=== PATIENT | male | born 1940 | race Caucasian/White ===

== ENCOUNTER 2020-03-10 10:50 | Outpatient (CLI) | payer MEDICARE, OTHER, SELFPAY ==
--- NOTE | 2020-03-10 14:33 | PFTS_ITS ---
Date of Study:03/10/20 Date of Dictation: MECHANICS: Forced vital capacity (FVC) is reduced. Forced expiratory volume in one second (FEV1) is reduced. FEV1/FVC is reduced. FLOW VOLUME LOOP: Reduced flow at all lung volumes with significant scooping. LUNG VOLUMES: Total lung capacity (TLC) is normal. Residual volume (RV) is increased. DIFFUSING CAPACITY FOR CARBON MONOXIDE: Normal INTERPRETATION: The pulmonary function tests are consistent with moderate obstruction. There is no significant postbronchodilator response. Lung volumes are consistent with air trapping. Gas exchange (DLCO) is normal. MTDD
== END 2020-03-10 10:51 | disposition home or self-care (01) ==
LOC: RT 10:51
PROVIDERS: PCP Internal Medicine; Visit Provider Family Medicine
DX: R06.02 Shortness of breath (principal)
CPT/HCPCS: 94060; 94726; 94729; J7611

== ENCOUNTER → 2021-02-23 13:55 | Outpatient (BNVA) | payer MEDICARE, OTHER, SELFPAY | PROVIDERS: PCP Family Medicine; Referring Provider Family Medicine; Visit Provider Urology | DX: N13.5 Crossing vessel and stricture of ureter without hydronephrosis (principal); N13.30 Unspecified hydronephrosis | CPT/HCPCS: 81003 ==

== ENCOUNTER 2021-03-29 07:52 | Outpatient (CLI) | payer MEDICARE, OTHER, SELFPAY ==
--- NOTE | 2021-03-29 | NM_ITS ---
WS: [id number] NUCLEAR MEDICINE RENAL FLOW STUDY INDICATION: Renal insufficiency. Hydronephrosis. Right flank pain. TECHNIQUE: Nuclear medicine renal scintigraphy with diuretic 20 mg Lasix FINDINGS: Asymmetric decreased uptake and perfusion right kidney on the initial imaging at 35.3%. Est imated GFR 24.3. Increased time to peak right kidney. Overall decreased perfusion right kidney. Poor emptying right kidney post-Lasix with diuretic T1 half 119 minutes Normal perfusion left kidney 64.6% with GFR 54.2. Normal time to peak with normal excretion post-Lasi x. NM/NM renal flow w pharm [id number] IMPRESSION: 1. Decreased uptake and perfusion right kidney with increased time to peak and poor emptying post Lasix. Estimated GFR 24.3 2. Normal renal perfusion and excretion left kidney.
== END 2021-03-29 07:53 | disposition home or self-care (01) ==
PROVIDERS: PCP Family Medicine; Visit Provider Urology
DX: N13.5 Crossing vessel and stricture of ureter without hydronephrosis (principal)
CPT/HCPCS: 78708; 81003; A9539; J1940

== ENCOUNTER 2022-02-17 13:53 | Outpatient (CLI) | payer MEDICARE, OTHER, SELFPAY ==
--- NOTE | 2022-02-17 14:06 | XRR_ITS ---
PROCEDURE INFORMATION: Exam: XR Ribs Exam date and time: 02/17/2022 2:08 PM Age: 82 years old Clinical indication: Pain and injury or trauma; Fall; Rib area, bilateral; Blunt trauma; Chest wall pain; Prior surgery; Surgery type: --open heart, pace maker; Additional info: R sided rib pain TECHNIQUE: Imaging protocol: XR of the ribs. Views: 3 views. Bilateral ribs. COMPARISON: CR XR chest 2V* [id number] 02/24/2020 12:08 PM FINDINGS: Bones/joints: There is no evidence for acute fracture or malalignment. Soft tissues: Normal. The lungs are clear. No pleural effusion or pneumothorax. There is a dual lead pacemaker. XR/XR ribs BI 3V* [id number] IMPRESSION: No acute findings.
== END 2022-02-17 13:54 | disposition home or self-care (01) ==
LOC: RAD 13:56
PROVIDERS: PCP Family Medicine; Visit Provider Family Medicine
DX: R07.81 Pleurodynia (principal)
CPT/HCPCS: 71110; 80053; 83690; 85025; 86140

== ENCOUNTER 2022-02-18 06:31 | Outpatient (CLI) | payer MEDICARE, OTHER, SELFPAY ==
--- NOTE | 2022-02-18 | US_ITS ---
WS: [id number] ULTRASOUND ABDOMEN LIMITED CLINICAL INFORMATION: RUQ PAIN COMPARISON: None. FINDINGS: Liver Size: Normal. Craniocaudal length: 15.0 cm. Echogenicity: Normal. Surface nodularity: None. Mass (size and location): None. Bile ducts Intrahepatic ducts: Normal. Common bile duct diameter: 0.3 cm. Gallbladder Normal. Gallstones: None. Gallbladder sludge: None. Gallbladder wall thickening: None. Pericholecystic fluid: None. Sonographic Tripp sign: Absent. Pancreas Normal as visualized. Right kidney: Multiple RIGHT renal cysts. Hydronephrosis: Moderate Size: 10.5 cm x 5.3 cm x 4.7 cm. Abdominal aorta and IVC Visualized portions are normal. Ascites: None. US/US abdomen limited [id number] IMPRESSION: 1. Moderate RIGHT hydronephrosis with multiple RIGHT renal cysts and peripelvi c cysts with dilatation RIGHT proximal ureter. Findings similar to the prior CT February 08, 2021. 2. Normal gallbladder. Normal common bile duct.
== END 2022-02-18 06:32 | disposition home or self-care (01) ==
LOC: RAD 06:32
PROVIDERS: PCP Family Medicine; Visit Provider Family Medicine
DX: N13.30 Unspecified hydronephrosis (principal); N28.1 Cyst of kidney, acquired
CPT/HCPCS: 76705

== ENCOUNTER 2022-03-17 10:19 | Outpatient (CLI) | payer MEDICARE, OTHER, SELFPAY ==
--- NOTE | 2022-03-17 10:30 | CT_ITS ---
WS: [id number] CT ABDOMEN PELVIS TECHNIQUE: Noncontrast CT of the abdomen and contrast-enhanced CT of the abdomen and pelvis with sergei nal and sagittal reformatted images. CLINICAL INFORMATION: UPJ COMPARISON: CT February 08, 2021 and ultrasound February 18, 2022 DLP: 2952.[address] scans at [facility] use at least one of these dose optimization techniques: automated e xposure control; mA and/or kV adjustment per patient size (includes targeted exams where dose is matc hed to clinical indication); or iterative reconstruction. FINDINGS: RIGHT renal cortical atrophy. Moderate RIGHT hydronephrosis with dilatation of the collecting system has improved compared to February 08, 2021 but is persistent. Suggestion of RIGHT UPJ stricture with obstr uction. Ureter distal to this is decompressed. No ureterectasis distal to the UPJ. Normal LEFT ureter. Normal LEFT ureteral excretion. Delayed emptying RIGHT kidney. Bilateral peripelv ic and renal cysts. Largest cyst RIGHT kidney measures 4.9 x 5.2 cm and LEFT kidney measures 4.4 x 3. 8 cm. Heterogeneous prostate enhancement measuring 2.9 x 4.4 cm with evidence of bladder outlet obstruction . Diffuse bladder wall thickening. Small cystocele. Mild thickening of the seminal vesicles bilateral ly. Lung bases are well aerated. Mild diffuse fatty infiltration of the liver. Normal portal vein and spl enic vein. Mild fatty atrophy of the pancreas. Normal spleen. Normal GE junction. Normal caliber abdo samuel aorta. Moderate aortic calcification. Adrenal glands are normal. Rectosigmoid constipation. Rectal distention. Moderate sigmoid constipation. Fat-containing umbilical hernia. Incidental fat-containing inguinal hernia. CT/CT abdomen pelvis wo/w [id number] IMPRESSION: 1. Moderate RIGHT hydronephrosis with suggestion of RIGHT UPJ obstruction with urothelial enhancement. 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 Ureter distal to this is deco mpressed. 2. Delayed emptying RIGHT kidney. Normal LEFT ureteral excretion. 3. RIGHT renal cortical atrophy. Normal renal parenchymal enhancement bilatera lly. 4. Rectosigmoid and moderate sigmoid constipation. 5. Heterogeneous enhancing prominent prostate with evidence of bladder outlet obstruction. Mild thickening of the seminal vesicles bilaterally. 6. Stable bilateral peripelvic and renal cortical cysts.
[2022-03-17] MEDS: iodixanol 320 mg/mL 100mL Btl IV (11:24)
== END 2022-03-17 10:20 | disposition home or self-care (01) ==
LOC: RAD 10:20
PROVIDERS: PCP Family Medicine; Visit Provider Urology
DX: N13.5 Crossing vessel and stricture of ureter without hydronephrosis (principal); N13.30 Unspecified hydronephrosis; R10.9 Unspecified abdominal pain
CPT/HCPCS: 74178; 81003; 99213

== ENCOUNTER → 2022-05-03 07:57 | Outpatient (BNVA) | payer MEDICARE, OTHER, SELFPAY | PROVIDERS: PCP Family Medicine; Visit Provider Family Medicine | DX: I50.22 Chronic systolic (congestive) heart failure (principal); I25.729 Atherosclerosis of autologous artery coronary artery bypass graft(s) with unspecified angina pectoris | CPT/HCPCS: 80048; 85025 ==

== ENCOUNTER → 2022-05-27 07:39 | Outpatient (BNVA) | payer MEDICARE, OTHER, SELFPAY | PROVIDERS: PCP Family Medicine; Visit Provider Family Medicine | DX: I50.22 Chronic systolic (congestive) heart failure (principal) | CPT/HCPCS: 80048 ==

== ENCOUNTER → 2022-07-19 08:03 | Outpatient (BNVA) | payer MEDICARE, OTHER, SELFPAY | PROVIDERS: PCP Family Medicine; Visit Provider Family Medicine | DX: I50.22 Chronic systolic (congestive) heart failure (principal) | CPT/HCPCS: 80048 ==

== ENCOUNTER → 2022-08-30 10:31 | Outpatient (BNVA) | payer MEDICARE, OTHER, SELFPAY | PROVIDERS: PCP Family Medicine; Visit Provider Family Medicine | DX: I50.22 Chronic systolic (congestive) heart failure (principal) | CPT/HCPCS: 80048 ==

== ENCOUNTER 2022-09-14 11:23 | Outpatient (CLI) | payer MEDICARE, OTHER, SELFPAY ==
--- NOTE | 2022-09-14 11:31 | XR_ITS ---
WS: [id number] Chest 2 views, 09/14/2022 Clinical Data: cough and shortness of breath Comparison: PA chest, 02/17/2022 Findings: No nodules, masses or effusions are seen. The heart is normal. The pulmonary vascularity is not increased. No pneumonia or pneumothorax is seen. The aortic arch and descending thoracic aorta s how calcification and mild tortuosity. There are coronary artery stents. The 2-lead pacemaker remains in the same position. Midline sternotomy sutures are present. XR/XR chest 2V* [id number] Impression: Atherosclerosis and cardiac pacemaker.
== END 2022-09-14 11:24 | disposition home or self-care (01) ==
LOC: RAD 11:27
PROVIDERS: PCP Family Medicine; Visit Provider Clinical Nurse Specialist Adult Health
DX: J40 Bronchitis, not specified as acute or chronic (principal)
CPT/HCPCS: 71046

== ENCOUNTER → 2022-09-21 14:17 | Outpatient (BNVA) | payer MEDICARE, OTHER, SELFPAY | PROVIDERS: PCP Family Medicine; Visit Provider Family Medicine | DX: M79.10 Myalgia, unspecified site (principal); R53.81 Other malaise; R53.83 Other fatigue; E53.8 Deficiency of other specified B group vitamins; E55.9 Vitamin D deficiency, unspecified; M25.50 Pain in unspecified joint; R05.3 Chronic cough; R35.0 Frequency of micturition; Z51.81 Encounter for therapeutic drug level monitoring; I25.10 Atherosclerotic heart disease of native coronary artery without angina pectoris; Z01.810 Encounter for preprocedural cardiovascular examination | CPT/HCPCS: 80053; 82306; 82550; 82607; 84153; 85025; 86038; 86141; 86431; 87070; 87205 ==

== ENCOUNTER → 2022-09-23 13:17 | Outpatient (BNVA) | payer MEDICARE, OTHER, SELFPAY | PROVIDERS: PCP Family Medicine; Visit Provider Family Medicine | DX: R05.3 Chronic cough (principal) | CPT/HCPCS: 87070; 87205 ==

== ENCOUNTER → 2022-09-29 09:29 | Outpatient (BNVA) | payer MEDICARE, OTHER, SELFPAY | PROVIDERS: PCP Family Medicine; Visit Provider Internal Medicine Pulmonary Disease | DX: R06.09 Other forms of dyspnea (principal); R05.3 Chronic cough; J44.9 Chronic obstructive pulmonary disease, unspecified; Z87.891 Personal history of nicotine dependence | CPT/HCPCS: 36415; 82785; 85025; 86003; 99204 ==

== ENCOUNTER → 2022-10-07 07:55 | Outpatient (BNVA) | payer MEDICARE, OTHER, SELFPAY | PROVIDERS: PCP Family Medicine; Visit Provider Family Medicine | DX: I25.709 Atherosclerosis of coronary artery bypass graft(s), unspecified, with unspecified angina pectoris (principal); I25.701 Atherosclerosis of coronary artery bypass graft(s), unspecified, with angina pectoris with documented spasm | CPT/HCPCS: 80053; 80061; 85025 ==

== ENCOUNTER 2022-10-27 07:54 | Outpatient (CLI) | payer MEDICARE, OTHER, SELFPAY ==
--- NOTE | 2022-10-27 08:00 | CT_ITS ---
WS: [id number] CT CHEST TECHNIQUE: Noncontrast CT of the chest with coronal and sagittal reformatted images. CLINICAL INFORMATION: chronic cough/lung screening COMPARISON: None. DLP: 382.[address] scans at [facility] use at least one of these dose optimization techniques: automated e xposure control; mA and/or kV adjustment per patient size (includes targeted exams where dose is matc hed to clinical indication); or iterative reconstruction. FINDINGS: Hazy nodular pulmonary opacity LEFT lower lobe measuring 9mm with a small amount of surrounding satel lite micronodularity. Moderate chronic emphysematous changes. No focal pneumonia or pleural fluid. Sternotomy with aortic calcification. CABG. Coronary calcification. No mediastinal or hilar lymphaden opathy. No axillary lymphadenopathy. Normal GE junction. Adrenal glands are normal. Atrophic RIGHT k idney. LEFT renal cyst measuring 2.9 CM. Splenic artery calcification. Cardiac pacer. CT/CT chest wo con [id number] IMPRESSION: 1. Hazy groundglass opacity LEFT lower lobe with surrounding micronodularity p rogressed compared to March 17, 2022. Associated opacity measures 9 mm. This may be infectious or inflammatory but indeterminant. Recommend 3 month follow-up c hest CT. 2. No other suspicious findings.
== END 2022-10-27 07:55 | disposition home or self-care (01) ==
LOC: RAD 07:54
PROVIDERS: PCP Family Medicine; Visit Provider Internal Medicine Pulmonary Disease
DX: Z12.2 Encounter for screening for malignant neoplasm of respiratory organs (principal); R05.3 Chronic cough; R91.8 Other nonspecific abnormal finding of lung field
CPT/HCPCS: 71250

== ENCOUNTER 2022-11-03 07:04 | Outpatient (CLI) | payer MEDICARE, OTHER, SELFPAY | END 2022-11-03 07:05 | disposition home or self-care (01) | LOC: RT 07:07 | PROVIDERS: PCP Family Medicine; Visit Provider Internal Medicine Pulmonary Disease | DX: R05.3 Chronic cough (principal); J18.9 Pneumonia, unspecified organism; R06.02 Shortness of breath | CPT/HCPCS: 94060; 94618; 94726; 94729; J7613 ==

== ENCOUNTER 2022-11-22 06:13 | Outpatient (CLI) | payer MEDICARE, OTHER, SELFPAY ==
--- NOTE | 2022-11-22 06:30 | CT_ITS ---
WS: [id number] CT CHEST TECHNIQUE: Noncontrast CT of the chest with coronal and sagittal reformatted images. CLINICAL INFORMATION: f/u 9 mm Hazy groundglass opacity COMPARISON: CT October 27, 2022 DLP: 366.[address] scans at [facility] use at least one of these dose optimization techniques: automated e xposure control; mA and/or kV adjustment per patient size (includes targeted exams where dose is matc hed to clinical indication); or iterative reconstruction. FINDINGS: Previously described hazy nodular pulmonary opacity LEFT lower lobe previously measuring 9mm with a s mall amount of surrounding satellite micronodularity has improved. Hazy groundglass opacity has resol valeri with a small amount of residual micronodularity. No new infiltrates or opacities. No other signif icant changes compared to previous Moderate chronic emphysematous changes. Sternotomy with aortic calcification. CABG. Coronary calcific ation. No mediastinal or hilar lymphadenopathy. No axillary lymphadenopathy. Normal GE junction. Adrenal glands are normal. Atrophic RIGHT kidney. LE FT renal cyst measuring 2.9 CM. Splenic artery calcification. Cardiac pacer. CT/CT chest wo con [id number] IMPRESSION: 1. Previously described hazy groundglass opacity LEFT lower lobe has essential ly resolved. Small amount of residual micronodularity. No new opacities. 2. No other significant changes compared to previous.
== END 2022-11-22 06:14 | disposition home or self-care (01) ==
LOC: RAD 06:14
PROVIDERS: PCP Family Medicine; Visit Provider Internal Medicine Pulmonary Disease
DX: R91.8 Other nonspecific abnormal finding of lung field (principal)
CPT/HCPCS: 71250

== ENCOUNTER → 2022-12-01 11:33 | Outpatient (BNVA) | payer MEDICARE, OTHER, SELFPAY | PROVIDERS: PCP Family Medicine; Visit Provider Internal Medicine Pulmonary Disease | DX: J45.909 Unspecified asthma, uncomplicated (principal); R05.3 Chronic cough; Z91.09 Other allergy status, other than to drugs and biological substances; Z87.891 Personal history of nicotine dependence | CPT/HCPCS: 99214 ==

== ENCOUNTER → 2023-01-05 08:11 | Outpatient (BNVA) | payer MEDICARE, OTHER, SELFPAY | PROVIDERS: PCP Family Medicine; Visit Provider Family Medicine | DX: I50.22 Chronic systolic (congestive) heart failure (principal) | CPT/HCPCS: 80048 ==

== ENCOUNTER 2023-05-11 10:34 | Outpatient (CLI) | payer MEDICARE, OTHER, SELFPAY ==
--- NOTE | 2023-05-11 10:41 | XR_ITS ---
WS: [id number] EXAMINATION: XR hip LT 2-3V wo/w pel* [id number] REASON FOR EXAM: Left hip pain COMPARISON: 05/11/2023. ORDER DATE: 05/11/2023 10:52 AM TECHNIQUE: Frontal internal/external rotation views of the left hip were obtained. X-RAY FINDINGS: There are no fractures or dislocations. Normal motion with internal/external rotation is present. Mild degenerative changes and joint space narrowing. IMPRESSION: 1. No fractures or dislocations with minor osteoarthritis.. 2. Normal motion with internal/external rotation.
--- NOTE | 2023-05-11 10:41 | XR_ITS ---
WS: [email or web address] EXAMINATION: XR lumbar spine 2-3V* [id number] REASON FOR EXAM: Left hip pain COMPARISON: None available. ORDER DATE: 05/11/2023 10:52 AM FINDINGS: Generalized degenerative spinal changes are seen including moderate degenerative endplate changes and marginal osteophytes. There is minimal narrowing of the intervertebral disc spaces. There is lack of the usual lumbar lordosis. Mild anterior wedge compression deformity is seen at L4 age-indeterminate there is no evidence of acute compression deformities or spondylolisthesis. Prominent atheroscleroti c aortoiliac calcification IMPRESSION: MODERATE DEGENERATIVE SPINE CHANGE AND SPONDYLOSIS.
--- NOTE | 2023-05-11 10:41 | XRR_ITS ---
PROCEDURE INFORMATION: Exam: XR Bilateral Sacroiliac Joints Exam date and time: 05/11/2023 10:48 AM Age: 83 years old Clinical indication: Other: Left hip pain TECHNIQUE: Imaging protocol: XR bilateral XR of the sacroiliac joints. Views: 3 or more views. COMPARISON: CT abdomen pelvis wo/w [id number] 03/17/2022 11:19 AM FINDINGS: Bones/joints: There is no visible sacral fracture. The sacrum is poorly visualized due to radiographic over penetration and bowel gas in the pelvis. SI joints are poorly visualized due to position. There is lower lumbar disc degeneration. Soft tissues: Visible soft tissues are unremarkable. Intraperitoneal space: The visible portion of the pelvis is unremarkable. XR/XR sacroiliac [facility] 3 [id number] IMPRESSION: 1. Limited assessment of the sacrum and SI joints due to radiographic over penetration and positioning. No acute findings. 2. Lower lumbar disc degeneration.
== END 2023-05-11 10:35 | disposition home or self-care (01) ==
PROVIDERS: PCP Family Medicine; Visit Provider Family Medicine
DX: M51.36 Other intervertebral disc degeneration, lumbar region (principal); M16.12 Unilateral primary osteoarthritis, left hip; M54.32 Sciatica, left side; M47.816 Spondylosis without myelopathy or radiculopathy, lumbar region
CPT/HCPCS: 72100; 72202; 73502

== ENCOUNTER → 2023-07-17 10:38 | Outpatient (BNVA) | payer MEDICARE, OTHER, SELFPAY | PROVIDERS: PCP Family Medicine; Visit Provider Anesthesiology Pain Medicine | DX: M16.12 Unilateral primary osteoarthritis, left hip; M54.50 Low back pain, unspecified | CPT/HCPCS: 99204 ==

== ENCOUNTER → 2023-08-17 13:19 | Outpatient (BNVA) | payer MEDICARE, OTHER, SELFPAY | PROVIDERS: PCP Family Medicine; Visit Provider Family Medicine | DX: N18.32 Chronic kidney disease, stage 3b (principal); D63.1 Anemia in chronic kidney disease | CPT/HCPCS: 81003; 82570; 84156 ==

== ENCOUNTER → 2023-08-18 10:01 | Outpatient (BNVA) | payer MEDICARE, OTHER, SELFPAY | PROVIDERS: PCP Family Medicine; Visit Provider Family Medicine | DX: N18.32 Chronic kidney disease, stage 3b (principal); D63.1 Anemia in chronic kidney disease | CPT/HCPCS: 82306; 82542 ==

== ENCOUNTER → 2023-09-01 09:17 | Outpatient (BNVA) | payer MEDICARE, OTHER, SELFPAY | PROVIDERS: PCP Family Medicine; Visit Provider Internal Medicine Pulmonary Disease | DX: R05.3 Chronic cough (principal); J45.40 Moderate persistent asthma, uncomplicated; R06.09 Other forms of dyspnea; Z87.891 Personal history of nicotine dependence | CPT/HCPCS: 82542; 99214 ==

== ENCOUNTER 2023-09-13 09:15 | Outpatient (CLI) | payer OTHER, SELFPAY ==
--- NOTE | 2023-09-13 09:21 | USR_ITS ---
PROCEDURE INFORMATION: Exam: US Retroperitoneal; Complete; Kidneys and Bladder Exam date and time: 09/13/2023 9:29 AM Age: 83 years old Clinical indication: Abnormal findings; Abnormal lab test; Abnormal kidney function lab tests; Additional info: Stage 3b chronic kidney dz. History of UPJ narrowing. TECHNIQUE: Imaging protocol: Real-time ultrasound of the retroperitoneum with image documentation. Complete exam focused on the kidneys and bladder. 45image(s) are provided. Other technique: Grayscale, color images are provided. COMPARISON: 1. US abdomen limited [id number] 02/18/2022 6:[address] abdomen pelvis wo/w [id number] 03/17/2022 11:19 AM. Renal nuclear scan report of 2020. FINDINGS: Right kidney: The right kidney measures 11.1 x 5.7 x 5.3 cm. No echogenic obstructive calculus is appreciated. No free or perinephric fluid is appreciated. There is renal cortical thinning right more so than left. There is some similar extrarenal pelvis dilatation on the right for example measuring 2.7 cm. There is some right renal anechoic cystic appearance for example including superiorly measuring 5.3 x 3.4 x 4.4 cm as well as some similar overall changes on the left. Left kidney: The left kidney measures 10.5 x 5.7 x 4.1 cm. No echogenic obstructive calculus or hydronephrosis is appreciated. No free or perinephric fluid is appreciated. Aorta: The adjacent aorta measures 1.6 cm. Intraperitoneal space: No free fluid collections are appreciated. Urinary bladder: The bladder is incompletely fluid-filled for evaluation which may exaggerate the wall thickness. Prostate: There appears to be some prostate hypertrophy incompletely included. No other significant interval changes are appreciated. US/US renal BI* [id number] IMPRESSION: 1. The bladder is incompletely fluid-filled for evaluation which may exaggerate the wall thickness as well as suspected adjacent lobulated prostate enlargement. 2. There is pelvicaliectasis again demonstrated on the right along with anechoic cystic appearing changes bilaterally. No interval echogenic obstructive calculus is currently appreciated.
== END 2023-09-13 09:16 | disposition home or self-care (01) ==
PROVIDERS: PCP Family Medicine; Visit Provider Internal Medicine Nephrology
DX: N18.32 Chronic kidney disease, stage 3b (principal)
CPT/HCPCS: 76770

== ENCOUNTER → 2023-09-21 09:03 | Outpatient (BNVA) | payer MEDICARE, OTHER, SELFPAY | PROVIDERS: PCP Family Medicine; Visit Provider Anesthesiology Pain Medicine | DX: M54.50 Low back pain, unspecified; M25.552 Pain in left hip | CPT/HCPCS: 99214 ==

== ENCOUNTER → 2023-09-25 14:15 | Outpatient (BNVA) | payer MEDICARE, OTHER, SELFPAY | PROVIDERS: PCP Family Medicine; Visit Provider Anesthesiology Pain Medicine | DX: M16.12 Unilateral primary osteoarthritis, left hip (principal) | CPT/HCPCS: 20610; 77002; J1030; J3490 ==

== ENCOUNTER → 2023-10-12 12:41 | Outpatient (BNVA) | payer MEDICARE, OTHER, SELFPAY | PROVIDERS: PCP Family Medicine; Visit Provider Family Medicine | DX: N18.32 Chronic kidney disease, stage 3b (principal) | CPT/HCPCS: 80069 ==

== ENCOUNTER → 2023-10-26 09:05 | Outpatient (BNVA) | payer MEDICARE, OTHER, SELFPAY | PROVIDERS: PCP Family Medicine; Visit Provider Anesthesiology Pain Medicine | DX: M43.16 Spondylolisthesis, lumbar region; M16.12 Unilateral primary osteoarthritis, left hip | CPT/HCPCS: 99214 ==

== ENCOUNTER 2023-11-15 08:07 | Outpatient (CLI) | payer MEDICARE, OTHER, SELFPAY ==
--- NOTE | 2023-11-15 08:23 | XR_ITS ---
WS: [email or web address] Exam: XR cervical spine 3V* [id number] Date/Time of Exam: 11/15/2023 8:26 AM Reason For Exam: Left mid cervical pain No acute fracture or dislocation noted. The odontoid is intact. Mild spondylosis and degenerative dis c narrowing from C3-C7. Facet DJD at all levels. There is straightening. Paraspinal soft tissues are unremarkable. IMPRESSION: 1. Moderate degenerative changes from C3-C7. 2. No fracture or malalignment. Straightening.
--- NOTE | 2023-11-15 08:30 | FL_ITS ---
WS: [email or web address] Exam: FL barium swallow [id number] Date/Time of Exam: 11/15/2023 8:18 AM Reason For Exam: Fluoroscopy time: 2min [id number] minutes # of spot films: Oropharyngeal phase of swallowing was normal. A small intraluminal lobulated filling defect is seen a long the anterior wall of the cervical esophagus at the level of C5. No other intraluminal filling de fects were noted in the esophagus. No sign of stricture. Mild spasm of the esophagus was noted. The e sophagus is not displaced. A tiny hiatal hernia is noted. No reflux was observed. IMPRESSION: 1. 1 cm lobulated intraluminal filling defect involving the anterior wall of the cervical esophagus a t about the level of C5. It is recommended that this area be evaluated endoscopically for further wor k-up. 2. No other sign of esophageal stricture or mass. Mild spasm was noted. Tiny hiatal hernia.
== END 2023-11-15 08:08 | disposition home or self-care (01) ==
LOC: RAD 08:08
PROVIDERS: PCP Family Medicine; Visit Provider Family Medicine
DX: R13.10 Dysphagia, unspecified (principal); M54.2 Cervicalgia; K44.9 Diaphragmatic hernia without obstruction or gangrene
CPT/HCPCS: 72040; 74220

== ENCOUNTER → 2023-11-28 11:06 | Outpatient (BNVA) | payer MEDICARE, OTHER, SELFPAY | PROVIDERS: PCP Family Medicine; Visit Provider Surgery | DX: R13.10 Dysphagia, unspecified (principal); K22.9 Disease of esophagus, unspecified | CPT/HCPCS: 99204 ==

== ENCOUNTER 2023-12-07 09:13 | Day surgery (SDC) | payer MEDICARE, OTHER, SELFPAY ==
[2023-12-07 09:36] VITALS: BP 114/65; PULSE 64; RESP 18; TEMP 36.1; O2SAT 96; BMI 25.1
--- NOTE | 2023-12-07 09:45 | W.PM.OPSUD ---
Surgery/Procedure H&P Update DATE OF PROCEDURE: December 07, 2023 DATE H&P PERFORMED: 11/21/23 H&P UPDATE INFORMATION: I have reviewed H&P completed within last 30 days, I have examined patient prior to procedure, No changes to prior documentation and H&P is in [facility] EMR on date indicated PLANNED PROCEDURE: Operation Date: 12/07/23 10:25 Proposed Procedures p EGD(Not Applicable) - Edu Stevenson MD
[2023-12-07] MEDS: sodium chloride 0.9% 1,000 ML 30 ML IV ×2 (09:48→11:21)
--- NOTE | 2023-12-07 10:00 | P.ANESASSM_ITS ---
Pre-Anesthetic Assessment Height/Weight: Height 1.75 m Weight 77.111 kg Temp Pulse Resp BP Pulse Ox O2 Del Method 97 F L 64 18 114/65 96 Room Air 12/07/23 09:36 12/07/23 09:36 12/07/23 09:36 12/07/23 09:36 12/07/23 09:36 12/07/23 09:36 Operation Date: 12/07/23 10:25 Proposed Procedures p EGD(Not Applicable) - Edu Stevenson MD Familial anesthetic complications: None Was Beta Devonte taken within 24 hours: Yes Was Clonidine taken within 24 hours: N/A Last intake: Intake Last Liquid Date 12/06/23 Last Liquid Time 21:30 Last Solid Date 12/06/23 Last Solid Time 18:00 Social No alcohol and No tobacco Exam alert, oriented x 3, clear to auscultation bilaterally and regular rate & rhythm Airway Mallampati: Class III Dentition: full Pulmonary Asthma and Chronic Obstructive Pulmonary Disease CV/HEM Coronary Artery Disease (CABG) and Hypertension pacemaker CKD Metabolic Hyperlipidemia Anesthetic Plan ASA status: 3 Anesthesia: MAC Risk of > 500 ml blood loss (7ml/kg in children): No Medications/Allergies Home Medications Medication Instructions Recorded Confirmed Last Taken Type aspirin 81 mg tablet,delayed 81 mg PO DAILY 02/19/21 12/05/23 12/06/23 History release (Adult Aspirin Regimen) cholecalciferol (vitamin D3) 25 25 mcg PO DAILY 02/19/21 12/05/23 12/06/23 History mcg (1,000 unit) capsule isosorbide mononitrate 30 mg 30 mg PO DAILY 02/19/21 12/05/23 12/07/23 08:30 History tablet,extended release 24 hr multivitamin 1 tab PO DAILY 02/19/21 12/05/23 12/06/23 History ranolazine 500 mg tablet,extended 500 mg PO BID 02/19/21 12/05/23 12/06/23 History release,12 hr (Ranexa) clopidogrel 75 mg tablet (Plavix) 75 mg PO DAILY 02/23/21 12/05/23 12/02/23 History spironolactone 25 mg tablet 25 mg PO DAILY #30 tabs 08/03/22 12/05/23 12/06/23 Rx furosemide 20 mg tablet See Rx Instructions PO DAILY #30 09/29/22 12/05/23 12/06/23 Rx tabs carvedilol 25 mg tablet 25 mg PO BID #180 tabs 02/03/23 12/05/23 12/07/23 08:30 Rx montelukast 10 mg tablet 10 mg PO DAILY #30 tabs 04/04/23 12/05/23 12/06/23 Rx (Singulair) fluticasone 250 mcg-salmeterol 50 1 inh inhalation Q12H #60 ea 09/01/23 12/05/23 12/06/23 Rx mcg/dose blistr powdr for inhalation (Wixela Inhub) rosuvastatin 10 mg tablet (Crestor) 10 mg PO DAILY #90 tabs 10/02/23 12/05/23 12/06/23 Rx tramadol 50 mg tablet 50 mg PO BID PRN pain #30 tabs 11/21/23 12/05/23 Unknown Rx zolpidem 5 mg tablet (Ambien) 5 mg PO .QHS PRN Insomnia 12/05/23 12/05/23 12/06/23 History Allergies Allergy/AdvReac Type Severity Reaction Status Date / Time No Known Allergies Allergy Verified 12/05/23 09:56 [facility] Anesthesia Medical History CHF (congestive heart failure) History of cataract Family history of CABG History of pacemaker Hydronephrosis UPJ (ureteropelvic junction) obstruction Surgical History (Updated 11/28/23 @ 11:33 by SERINA Mcfarlane) Hx of CABG Family History Father , AT 92 Heart disease Mother , AT AGE 94 Natural with unknown cause Social History Smoking and tobacco/nicotine status: former use of tobacco/nicotine Quit status (tobacco/nicotine): has quit using Year quit tobacco: 1973 Former quit date comment: 1ppd X 15 years Alcohol intake: current Alcohol intake frequency: holidays/special occasions only Substance/Drug Use: never Additional social history: Wishes to be an organ donor if possible Marital status: Current occupational status: retired Data Anesthesia Cardiac Studies: No Data to Display
[2023-12-07 11:41] VITALS: BP 104/50; PULSE 62; RESP 18; TEMP 36.3; O2SAT 100
[2023-12-07 11:51] VITALS: BP 122/56; PULSE 59; RESP 18; O2SAT 96
[2023-12-07 12:01] VITALS: BP 120/50; PULSE 61; RESP 18; O2SAT 97
[2023-12-07 12:11] VITALS: BP 134/55; PULSE 58; RESP 18; O2SAT 98
--- NOTE | 2023-12-07 12:20 | ANE.PACU2 ---
Inpatient post-anesthesia follow up: Airway intact: Yes Vital signs: Temperature 97.4 F Pulse Rate 58 Respiratory Rate 18 Blood Pressure 134/55 Pulse Oximetry 98 Oxygen Delivery Me thod Room Air Oxygen Flow Rate Fraction of Inspir ed Oxygen Hydration adequate: Yes Nausea and vomiting: No Pain level: 1 Mental status: Baseline
== END 2023-12-07 12:22 | disposition home or self-care (01) ==
PROVIDERS: PCP Family Medicine; Visit Provider Surgery
PROC: 0DJ08ZZ Inspection of Upper Intestinal Tract, Via Natural or Artificial Opening Endoscopic (ICD-10-PCS; CPT 43235; principal; 2023-12-07 10:25)
DX: R13.10 Dysphagia, unspecified (principal); K22.9 Disease of esophagus, unspecified; J44.9 Chronic obstructive pulmonary disease, unspecified; I25.10 Atherosclerotic heart disease of native coronary artery without angina pectoris; Z95.1 Presence of aortocoronary bypass graft; Z95.0 Presence of cardiac pacemaker; I12.9 Hypertensive chronic kidney disease with stage 1 through stage 4 chronic kidney disease, or unspecified chronic kidney disease; N18.9 Chronic kidney disease, unspecified; E78.5 Hyperlipidemia, unspecified; Z79.82 Long term (current) use of aspirin; Z87.891 Personal history of nicotine dependence
CPT/HCPCS: 43239; 88305; J2704; J7030

== ENCOUNTER → 2023-12-14 08:10 | Outpatient (BNVA) | payer MEDICARE, OTHER, SELFPAY | PROVIDERS: PCP Family Medicine; Visit Provider Family Medicine | DX: E87.5 Hyperkalemia (principal); N13.30 Unspecified hydronephrosis; I10 Essential (primary) hypertension; N18.9 Chronic kidney disease, unspecified | CPT/HCPCS: 80053; 80061; 85025 ==

== ENCOUNTER → 2024-01-09 09:04 | Outpatient (BNVA) | payer MEDICARE, OTHER, SELFPAY | PROVIDERS: PCP Family Medicine; Visit Provider Surgery | DX: Z09 Encounter for follow-up examination after completed treatment for conditions other than malignant neoplasm (principal); R13.10 Dysphagia, unspecified | CPT/HCPCS: 99213 ==

== ENCOUNTER → 2024-01-18 09:05 | Outpatient (BNVA) | payer MEDICARE, OTHER, SELFPAY | PROVIDERS: PCP Family Medicine; Visit Provider Anesthesiology Pain Medicine | DX: M25.552 Pain in left hip (principal); M54.50 Low back pain, unspecified | CPT/HCPCS: 99214 ==

== ENCOUNTER → 2024-02-01 13:29 | Outpatient (BNVA) | payer MEDICARE, OTHER, SELFPAY | PROVIDERS: PCP Family Medicine; Visit Provider Anesthesiology Pain Medicine | DX: M16.12 Unilateral primary osteoarthritis, left hip (principal) | CPT/HCPCS: 20610; 77002; J1010; J3490 ==

== ENCOUNTER → 2024-03-04 08:51 | Outpatient (BNVA) | payer MEDICARE, OTHER, SELFPAY | PROVIDERS: PCP Family Medicine; Visit Provider Anesthesiology Pain Medicine | DX: M25.552 Pain in left hip (principal); M54.50 Low back pain, unspecified | CPT/HCPCS: 99214 ==

== ENCOUNTER → 2024-03-11 11:08 | Outpatient (BNVA) | payer MEDICARE, OTHER, SELFPAY | PROVIDERS: PCP Family Medicine; Visit Provider Family Medicine | DX: N18.32 Chronic kidney disease, stage 3b (principal); Z79.899 Other long term (current) drug therapy | CPT/HCPCS: 80069; 82306; 82542; 82570; 84156; 85007; 85027 ==

== ENCOUNTER 2024-03-22 09:12 | Observation (INO) | payer MEDICARE, OTHER, SELFPAY ==
[2024-03-22] VITALS (9 sets, daily range): BP systolic 112–125; BP diastolic 59–75; PULSE 59–94; RESP 16–23; TEMP 36.4–36.6; O2SAT 95
--- NOTE | 2024-03-22 09:21 | W.ED.SOB ---
HPI - SOB/Dyspnea General: Chief Complaint: Shortness of Breath/Dyspnea Stated Complaint: weakness, cardiac hx Time Seen by Provider: 03/22/24 09:16 History of Present Illness: HPI Narrative: This patient is an 84 year old presenting with shortness of breath. He denies chest pain. He reports that he got extremely sweaty, weak and short of breath. He has an extensive history of heart problems including 2 bypass surgeries and more than 10 stents. He follows up with a epic trainer in [place] - Dr. Dennis ([phone]) as that is where his initial procedures were done. He has not had any cardiac evaluation other than virtual office visits in the past 3 or 4 years. His epic trainer had recommended that he get an echo done soon. The patient did take a nitro at home, but it didn't help. Although he did not have chest pain - he thought this was likely his heart. [facility] PFSH: Medical History CHF (congestive heart failure) History of cataract Family history of CABG History of pacemaker Hydronephrosis UPJ (ureteropelvic junction) obstruction Surgical History Hx of CABG Family History Father , AT 92 Heart disease Mother , AT AGE 94 Natural with unknown cause Social History Smoking and tobacco/nicotine status: former use of tobacco/nicotine Quit status (tobacco/nicotine): has quit using Year quit tobacco: 1973 Former quit date comment: 1ppd X 15 years Alcohol intake: current Alcohol intake frequency: holidays/special occasions only Substance/Drug Use: never Additional social history: Wishes to be an organ donor if possible Marital status: Current occupational status: retired Physical Exam Const: COMMON NORMALS: no acute distress, patient oriented x3, no limitations and alert GENERAL APPEARANCE: cooperative and comfortable HENMT: HEAD & SCALP: normal to inspection FACE & SINUS: normal facial exam Eye: GENERAL EYE: appearance normal, both eyes and all related structures Neck/C-Spine: COMMON NORMALS: supple, no meningeal signs and no JVD Chest: COMMONS NORMALS: normal inspection of the chest Resp: COMMON NORMALS: clear to auscultation bilaterally EFFORT & INSPECTION: Yes tachypneic and Yes labored AUSCULTATION: clear to auscultation bilaterally Cardio: COMMON NORMALS: no JVD, regular rate, regular rhythm and No murmurs present (Cardio) RATE: regular rate RHYTHM: regular rhythm GI: COMMON NORMALS: Normal to inspection, nondistended, normoactive bowel sounds present, Soft to palpation and non-tender INSPECTION: Yes normal to inspection AUSCULTATION: Yes normoactive bowel sounds PALPATION: Yes Soft to palpation Back/Pelvis: COMMON NORMALS: thoracic and lumbar spine normal to inspection Extremity: COMMON NORMALS: normal to inspection Neuro: COMMON NORMALS: patient oriented x3, moves all extremities, no focal motor deficits and no sensory deficits noted SENSORIUM/ORIENTATION: Yes alert MENINGEAL SIGNS: Yes no meningeal signs Psych: COMMON NORMALS: mental status grossly normal, cooperative and normal affect Skin: COMMON NORMALS: no rashes or lesions noted and turgor normal GENERAL SKIN EXAM: no rashes or lesions noted and turgor normal Course Vital Signs: Vital signs: Vital Signs Temperature 97.6 F 03/22/24 09:15 Pulse Rate 65 03/22/24 14:09 Respiratory Rate 20 H 03/22/24 14:09 Blood Pressure 112/59 03/22/24 14:09 Pulse Oximetry 95 03/22/24 14:09 Oxygen Delivery Me thod Room Air 03/22/24 09:15 MDM - SOB/Dyspnea Medical Decision Making Extensive cardiac history - non specific EKG changes. Initial troponin elevated with a delta at 2 hour of over 20. He was feeling better in the ED, but was amenable to admission for further cardiac work up. He is also noted to have some thrombocytopenia - unclear the cause. He has had normal platelet counts previously. Lab Data 03/22/24 09:51 03/22/24 09:57 Labs/Radiology: Radiology Impressions Chest X-Ray 03/22/24 09:24 IMPRESSION: Stable chest without acute abnormality. Laboratory Results WBC 6.27 10^3/uL (3.29-11.43) 03/22/24 09:51 RBC 4.52 10^6/uL (3.85-5.65) 03/22/24 09:51 Hgb 13.80 g/dL (11.27-16.99) 03/22/24 09:51 Hct 43.3 % (37-53) 03/22/24 09:51 MCV 95.8 fl (82-101) 03/22/24 09:51 MCH 30.5 pg (27-33) 03/22/24 09:51 MCHC 31.9 g/dL (30-55) 03/22/24 09:51 RDW 12.6 % (12.1-15.1) 03/22/24 09:51 Plt Count 95 10^3/cmm (157-399) L 03/22/24 09:51 MPV 9.2 fL (7.4-10.4) 03/22/24 09:51 Neut % (Auto) 87.8 % 03/22/24 09:51 Lymph % (Auto) 3.7 % 03/22/24 09:51 [place] % (Auto) 7.5 % 03/22/24 09:51 Eos % (Auto) 0.0 % 03/22/24 09:51 Baso % (Auto) 0.5 % 03/22/24 09:51 Neut # (Auto) 5.51 10^3/uL (1.8-7.7) 03/22/24 09:51 Lymph # (Auto) 0.2 10^3/uL (0.8-4.8) L 03/22/24 09:51 [place] # (Auto) 0.5 10^3/uL (0.2-0.9) 03/22/24 09:51 Eos # (Auto) 0.0 10^3/uL (0.0-0.8) 03/22/24 09:51 Baso # (Auto) 0.0 10^3/uL (0.0-0.1) 03/22/24 09:51 Nucleated RBC % (auto) 0 % 03/22/24 09:51 Nucleated RBCs # 0.0 /100WBC 03/22/24 09:51 Sodium 131 mmol/L (136-145) L 03/22/24 09:57 Potassium 5.2 mmol/L (3.5-5.1) H 03/22/24 09:57 Chloride 99 mmol/L (98-107) 03/22/24 09:57 Carbon Dioxide 21 mmol/L (22-29) L 03/22/24 09:57 Anion Gap 16.2 (5-19) 03/22/24 09:57 BUN 22 mg/dL (8-23) 03/22/24 09:57 Creatinine 1.5 mg/dL (0.7-1.2) H 03/22/24 09:57 GFR Calculation Not Reportable 03/22/24 09:57 Glucose 152 mg/dL (65-115) H 03/22/24 09:57 Calculated Osmolality 278 mOsm/kg (285-295) L 03/22/24 09:57 Lactic Acid 1.1 mmol/L (0.5-2.2) 03/22/24 10:35 Calcium 8.7 mg/dL (8.5-10.5) 03/22/24 09:57 Total Bilirubin 0.2 mg/dL (0.15-1.2) 03/22/24 09:57 AST 26 U/L (0-40) 03/22/24 09:57 ALT 21 U/L (0-41) 03/22/24 09:57 Alkaline Phosphatase 86 U/L (40-130) 03/22/24 09:57 Troponin T Baseline 48 ng/L (0-15) H 03/22/24 09:51 Troponin T 120 Minute 74.78 ng/L (0-15) H 03/22/24 11:54 Delta Troponin T 26.78 ABS# (0-10) H* 03/22/24 11:54 NT-Pro-B Natriuret Pep 2439 pg/mL (0-450) H 03/22/24 09:57 Total Protein 6.5 g/dL (6.6-8.7) L 03/22/24 09:57 Albumin 3.8 g/dL (3.5-5.2) 03/22/24 09:57 Globulin 2.7 g/dL (1.3-4.6) 03/22/24 09:57 XR interpretation done by ED provider, pending radiology final review Discharge Plan Discharge Patient Disposition: Placed in Observation Admit Provider: Patricia Kenny Clinical Impression: Weakness, Acute dyspnea, Diaphoresis, Elevated troponin, History of coronary artery disease Coding Level of Care Code ED Glass Vial Bending Conveyor Feeder for Natashag Priscilla
--- NOTE | 2024-03-22 09:24 | XR_ITS ---
WS: [id number] XR chest 1V portable [id number] REASON FOR EXAM: SOB, cough, chills FINDINGS: The chest is unchanged compared to 09/14/2022. Mild tortuosity of the thoracic aorta. Heart is at the upper limits of normal in size. Cardiac device over the left chest with leads to the right atrium and right ventricle. Previous coronary artery bypass surgery. Coronary artery stents. Calcified granulomas disease in both hemithoraces. No acute pulmonary parenchymal or pleural abnormality. No lung nodule or mass. No adenopathy. Mild degenerative spondylosis in the mid and lower thoracic spine. XR/XR chest 1V portable [id number] IMPRESSION: Stable chest without acute abnormality.
--- NOTE | 2024-03-22 09:25 | ECG_ITS ---
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 Measurements Intervals [place] Rate: 92 P: 131 SD: 204 QRS: -7 QRSD: 115 T: 128 QT: 322 QTc: 400 Interpretive Statements ELECTRONIC VENTRICULAR PACEMAKER -- CONTOUR ANALYSIS BASED ON INTRINSIC RHYTHM MODERATE INTRAVENTRICULAR CONDUCTION DELAY [110+ ms QRS DURATION] ST DEVIATION AND MODERATE T-WAVE ABNORMALITY, CONSIDER ANTEROLATERAL ISCHEMIA [-0.1+ mV T-WAVE IN V3-V6] No previous ECG available for comparison Electronically Signed On 03-22-2024 18:44:05 CDT by Jam Perez M.D. [id number]
[2024-03-22] MEDS: sodium chloride 0.9% 500 ML 999 ML IV (09:40)
[2024-03-22 10:03] LABS: Basophils % 0.5 %; Hematocrit 43.3 % (37-53); Lymphocytes # 0.2 10^3/uL (0.8-4.8); Lymphocytes % 3.7 %; Mean Corpuscular HGB Conc 31.9 g/dL (30-55); Mean Corpuscular Hemoglobin 30.5 pg (27-33); Mean Corpuscular Volume 95.8 fl (82-101); Mean Platelet Volume 9.2 fL (7.4-10.4); Monocytes # 0.5 10^3/uL (0.2-0.9); Monocytes % 7.5 %; Neutrophils # 5.51 10^3/uL (1.8-7.7); Neutrophils % 87.8 %; Nucleated Red Blood Cells % 0 %; Platelet Count 95 10^3/cmm (157-399); Red Blood Count 4.52 10^6/uL (3.85-5.65); Red Cell Distribution Width 12.6 % (12.1-15.1); White Blood Count 6.27 10^3/uL (3.29-11.43)
[2024-03-22 10:22] LABS: Troponin(5th) Baseline 48 ng/L (0-15)
--- NOTE | 2024-03-22 10:25 | PC.PHAR ---
Addendum entered by Penelope Thorpe 03/22/24 10:27: PT HAS NOT HAD MORNING MEDS TODAY. 03/22/24 Original Note: PT IS [facility] AND HAS PARTIAL LIST OF CURRENT MEDICATIONS. SEVERAL WERE NOT ON HIS LIST AND WERE VERIFIED VERBALLY.
[2024-03-22 10:30] LABS: Alanine Aminotransferase 21 U/L (0-41); Albumin Level 3.8 g/dL (3.5-5.2); Alkaline Phosphatase 86 U/L (40-130); Anion Gap 16.2 (5-19); Aspartate Amino Transferase 26 U/L (0-40); Blood Urea Nitrogen 22 mg/dL (8-23); Calcium 8.7 mg/dL (8.5-10.5); Carbon Dioxide 21 mmol/L (22-29); Chloride 99 mmol/L (98-107); Globulin 2.7 g/dL (1.3-4.6); Glucose 152 mg/dL (65-115); NT Pro B Type Natriuretic Pept 2439 pg/mL (0-450); Osmolality Calculated 278 mOsm/kg (285-295); Potassium 5.2 mmol/L (3.5-5.1); Sodium 131 mmol/L (136-145); Total Bilirubin 0.2 mg/dL (0.15-1.2); Total Protein 6.5 g/dL (6.6-8.7)
[2024-03-22] MEDS: nitroglycerin 0.4 mg sublingual Tablet SUBLINGUAL (10:43)
[2024-03-22 11:00] LABS: Lactic Sepsis W/Reflex 1.1 mmol/L (0.5-2.2)
--- NOTE | 2024-03-22 11:25 | ECG_ITS ---
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 Measurements Intervals [place] Rate: 77 P: 54 TX: 154 QRS: 257 QRSD: 166 T: 73 QT: 420 QTc: 478 Interpretive Statements ELECTRONIC VENTRICULAR PACEMAKER Compared to ECG 03/22/2024 09:11:15 Intraventricular conduction delay no longer present T-wave abnormality no longer present Possible ischemia no longer present Electronically Signed On 03-22-2024 18:49:24 CDT by Jam Perez M.D. [id number]
[2024-03-22] MEDS: acetaminophen 325 mg Tablet 650 MG PO (11:26)
[2024-03-22 12:31] LABS: Troponin 5 2HR 74.78 ng/L (0-15)
[2024-03-22 12:38] LABS: Troponin 5 2HR Delta 26.78 ABS# (0-10)
--- NOTE | 2024-03-22 13:12 | PM.HP ---
Providers/Chief Complaint Primary Care Provider: Franklin Salinas MD Chief Complaint: weakness, cardiac hx History of Present Illness Fco Aldana is a 84 year old male with extensive history of coronary disease, as per the family there are 18 stents, 2cabg, follows up with endoscopy specialty technician in [place] with a virtual visits, presented to the hospital with worsening of shortness of breath. Patient is stating that he take Lasix 20 mg on every other day along spironolactone but lately he has been getting more short of breath on minimal exertion, he is endorsing orthopnea and PND, no chest pain at all. No fever nausea vomiting diarrhea. His energy has been low as well. Stating that last time when he had a stent placed he experienced chest pain this time there is no chest discomfort at all. Review of Systems Const: Denies: fever(s) Eyes: Denies: change in vision or increased production of tears ENMT: Denies: throat pain Card: Reports: dyspnea on exertion and orthopnea; Denies: chest pain Resp: Reports: dyspnea GI: Denies: abdominal pain : Denies: flank pain Medications/Allergies Home Medications Medication Instructions Recorded Confirmed Last Taken Type aspirin 81 mg tablet,delayed 81 mg PO DAILY 02/19/21 03/22/24 03/21/24 History release (Adult Aspirin Regimen) cholecalciferol (vitamin D3) 25 25 mcg PO DAILY 02/19/21 03/22/24 03/21/24 History mcg (1,000 unit) capsule isosorbide mononitrate 30 mg 30 mg PO DAILY 02/19/21 03/22/24 03/21/24 History tablet,extended release 24 hr multivitamin 1 tab PO DAILY 02/19/21 03/22/24 03/21/24 History clopidogrel 75 mg tablet (Plavix) 75 mg PO DAILY 02/23/21 03/22/24 03/21/24 History spironolactone 25 mg tablet 25 mg PO DAILY #30 tabs 08/03/22 03/22/24 03/21/24 Rx furosemide 20 mg tablet See Rx Instructions PO DAILY #30 09/29/22 03/22/24 03/20/24 Rx tabs carvedilol 25 mg tablet 25 mg PO BID #180 tabs 02/03/23 03/22/24 03/21/24 Rx tramadol 50 mg tablet 50 mg PO BID PRN pain #30 tabs 11/21/23 03/22/24 Unknown Rx zolpidem 5 mg tablet (Ambien) 5 mg PO .QHS PRN Insomnia 12/05/23 03/22/24 12/06/23 History montelukast 10 mg tablet 10 mg PO DAILY #30 tabs 12/12/23 03/22/24 03/21/24 Rx (Singulair) fluticasone 250 mcg-salmeterol 50 1 inh inhalation Q12H PRN 03/22/24 03/22/24 Unknown History mcg/dose blistr powdr for Shortness Of Breath inhalation (Wixela Inhub) ranolazine 500 mg tablet,extended 500 mg PO BID 03/22/24 03/22/24 03/21/24 History release,12 hr rosuvastatin 10 mg tablet 10 mg PO QPM 03/22/24 03/22/24 03/21/24 History Allergies Allergy/AdvReac Type Severity Reaction Status Date / Time No Known Allergies Allergy Verified 03/04/24 09:01 PFSH Acute PFSH: Medical History CHF (congestive heart failure) History of cataract Family history of CABG History of pacemaker Hydronephrosis UPJ (ureteropelvic junction) obstruction Surgical History Hx of CABG Family History Father , AT 92 Heart disease Mother , AT AGE 94 Natural with unknown cause Social History Smoking and tobacco/nicotine status: former use of tobacco/nicotine Quit status (tobacco/nicotine): has quit using Year quit tobacco: 1973 Former quit date comment: 1ppd X 15 years Alcohol intake: current Alcohol intake frequency: holidays/special occasions only Substance/Drug Use: never Additional social history: Wishes to be an organ donor if possible Marital status: Current occupational status: retired Vitals/I&O/Wt Last Vital Signs Temp 97.6 F 03/22/24 09:15 Pulse 79 03/22/24 10:44 Resp 23 H 03/22/24 10:07 BP 119/64 03/22/24 10:44 Pulse Ox 95 03/22/24 10:44 O2 Del Method Room Air 03/22/24 09:15 03/21/24 03/22/24 03/22/24 22:59 06:59 14:59 Intake Total 500 / 500 Balance 500 / 500 Physical Exam Narrative: Patient is awake and alert Clinically does not look fluid overloaded Bilateral breath sounds without any adventitious rhonchi or wheezing Currently on room air Hemodynamically stable He was in right lateral position Semi-[place]uart[place] Very pleasant cooperative S1, S2 Abdomen is soft Data 03/22/24 09:51 03/22/24 09:57 Micro: Microbiology 03/22/24 09:51 Blood Culture - Preliminary Blood SPECIMEN COLLECTED 03/22/24 09:53 Blood Culture - Preliminary Blood SPECIMEN COLLECTED A&P Assessment and plan (1) Exertional dyspnea: (2) CHF exacerbation: Plan Acute CHF exacerbation Patient stating that his previous echo if you could recall showed EF of 35 to 40% I would increase the dose of Lasix to 40 mg daily at the time of discharge but for now I will use IV 40 mg Lasix with potassium supplementation Will request echo No active chest pain Trend troponin with serial EKGs Check D-dimer Chronic kidney disease chronic: Creatinine seems to be around baseline Hyperkalemia: Will give him 1 dose of Kayexalate Rule out sleep apnea will request overnight pulse ox study BNP 2400 Full code Cardiac diet Attestations Medical Necessity Statement*: Anticipating discharge within 48 hours Diagnoses Exertional dyspnea R06.09 CHF exacerbation I50.9
--- NOTE | 2024-03-22 13:15 | USCV_ITS ---
Katya Fco Age: 84 Gender: M : 1940 Exam Date: 03/22/2024 17:07 Ordering Phys: Patricia Kenny MD Technologist: Chris Mcginnis Exam Location: [facility] [place] Indication: UA BP: 112 / 59 HR: 80 Rhythm: Sinus Technical Quality: Adequate MEASUREMENTS (Male / Female) Normal Values 2D ECHO LV Diastolic Diameter PLAX 4.5 cm 4.2 - 5.9 / 3.9 - 5.3 cm IVS Diastolic Thickness 1.1 cm 0.6 - 1.0 / 0.6 - 0.9 cm IVS Systolic Thickness 1.7 cm LVPW Diastolic Thickness 1.3 cm 0.6 - 1.0 / 0.6 - 0.9 cm LVPW Systolic Thickness 1.4 cm LVOT Diameter 2.2 cm LV Ejection Fraction 2D Teich 58.3 % LV Ejection Fraction MOD 2C 52.2 % LV Ejection Fraction 2C AL 54.4 % LA Diameter 4.2 cm RA Systolic Volume 4C AL 62.8 ml RA Systolic Volume 4C MOD 60.8 ml LA Sys Volume AL 68.4 cm cubed LA Sys Volume Index AL 34.7 cm cubed/m squared Aorta at Sinotubular Diameter 2.6 cm IVC Diameter 2.0 cm M-MODE LA Ao Ratio MM 1.5 AV Cusp Separation MM 2.0 cm DOPPLER AV Peak Velocity 147.0 cm/s LVOT Peak Velocity 79.0 cm/s AV Area Cont Eq vti 1.9 cm squared AV Area Cont Eq pk 2.1 cm squared MV Peak Velocity 156.0 cm/s MV Area PHT 3.7 cm squared Mitral E to A Ratio 0.5 TV Peak Velocity 301.0 cm/s TR Peak Velocity 340.0 cm/s TR Peak Gradient 46.2 mmHg TR Mean Velocity 221.0 cm/s TR Mean Gradient 23.2 mmHg TR Velocity Time Integral 112.9 cm PV Peak Velocity 79.0 cm/s RV Ejection Time 0.3 s FINDINGS Left Ventricle Left ventricle is normal in size. LV systolic function is mildly reduced with EF of 40-45%. Mild global hypokinesis. Grade 1 distolic dysfunction. Right Ventricle Normal in size. Mild hypokinesis. Pacemaker lead is seen. Right Atrium Normal in size. Pacemaker lead is seen Left Atrium Dilated Mitral Valve Moderate mitral annular calcification. Mild mitral regurgitation. Aortic Valve Aortic valve is thickened. Mild aortic regurgitation. Tricuspid Valve Mild tricuspid regurgitation. Pulmonary artery systolic pressure is normal. Pulmonic Valve Mild pulmonic regurgitation. Pericardium Normal Aorta Normal in size IVC Appears to be normal CONCLUSIONS LV systolic function is mildly reduced with EF of 40-45%. Grade 1 diastolic dysfunction. Mild hypokinesis of right ventricle Left atrial dilation. Mild aortic regurgitation Mild mitral regurgitation Mild tricuspid regurgitation Mild pulmonic regurgitation No comparison studies are available. Jam Perez MD (Electronically Signed) Final Date: 22 March 2024 18:34 S
--- NOTE | 2024-03-22 15:25 | ECG_ITS ---
[facility] Test Date: 2024-03-22 Pat Name: Fco Aldana Department: Room: 259 Gender: Male Financial Aid: : 1940 Requested By: Jessenia Cisneros Order Number: [id number] Selene MD: Jam Perez M.D. Measurements Intervals [place] Rate: 62 P: 72 SC: 165 QRS: 234 QRSD: 171 T: 89 QT: 466 QTc: 474 Interpretive Statements ELECTRONIC ATRIAL PACEMAKER ELECTRONIC VENTRICULAR PACEMAKER Compared to ECG 03/22/2024 11:11:21 No significant changes Electronically Signed On 03-22-2024 18:47:46 CDT by Jam Perez M.D. [id number]
[2024-03-22 16:22] LABS: Troponin 5 6HR 83.79 ng/L (0-15)
[2024-03-22 16:25] LABS: Troponin 5 6HR Delta 35.79 ng/L (0-12)
[2024-03-22] MEDS: enoxaparin 40 mg/0.4 mL Syringe SUBCUT (17:43)
[2024-03-22] MEDS: ranolazine (12HR) 500 mg Tablet PO (17:43)
[2024-03-22] MEDS: carvedilol 25 mg Tablet PO (18:48)
[2024-03-22] MEDS: sodium polystyrene sulfonate 15 gm/60 mL Btl PO (19:42)
[2024-03-23] VITALS: BP 126/71; PULSE 69; RESP 17; TEMP 36.8; O2SAT 94
[2024-03-23 04:00] VITALS: BP 149/75; PULSE 69; RESP 18; TEMP 36.8; O2SAT 96
[2024-03-23] MEDS: FUROsemide 10 mg/mL SDV 4mL 40 MG IVP (06:06)
[2024-03-23 06:17] LABS: Anion Gap 11.5 (5-19); Blood Urea Nitrogen 19 mg/dL (8-23); Calcium 8.7 mg/dL (8.5-10.5); Carbon Dioxide 28 mmol/L (22-29); Chloride 100 mmol/L (98-107); Creatinine Clr Calc Pharmacy 36.9814; Glucose 99 mg/dL (65-115); Magnesium 1.7 mg/dL (1.7-2.3); Osmolality Calculated 282 mOsm/kg (285-295); Potassium 4.5 mmol/L (3.5-5.1); Sodium 135 mmol/L (136-145)
[2024-03-23 07:46] VITALS: BP 139/72; PULSE 87; RESP 18; TEMP 36.6; O2SAT 94
[2024-03-23 08:34] VITALS: PULSE 79; RESP 16; O2SAT 95
[2024-03-23] MEDS: aspirin 81 mg EC Tablet PO (09:00)
[2024-03-23] MEDS: clopidogrel 75 mg Tablet PO (09:00)
[2024-03-23] MEDS: ranolazine (12HR) 500 mg Tablet PO (09:00)
[2024-03-23] MEDS: sennosides-docusate Tablet 1 TAB PO (09:00)
[2024-03-23] MEDS: isosorbide mononitrate ER 30 mg Tablet PO (09:00)
[2024-03-23] MEDS: carvedilol 25 mg Tablet PO (09:00)
--- NOTE | 2024-03-23 11:04 | P.DS_ITS ---
Discharge Providers Date of Admission: 03/22/24 13:55 Date of Discharge: March 23, 2024 Attending Provider at Admission: Patricia Kenny MD Attending Provider at Discharge: Patricia Kenny MD Primary Care Provider: Franklin Salinas MD Diagnoses at Discharge Discharge Diagnosis (1) Exertional dyspnea: Status: Acute (2) CHF exacerbation: Status: Acute Reason for Visit Reason for Visit: weakness, cardiac hx Hospital Course Hospital Course 84-year-old male who was admitted for management valuation of shortness of orthopnea and PND, there was concern for CHF exacerbation, echo was requested which showed LV systolic function is mildly reduced with EF of 40-45%. Grade 1 diastolic dysfunction. Mild hypokinesis of right ventricle Patient has extensive coronary disease, during hospitalization and before patient did not express any chest pain, patient follows up with a doctor in [place] patient stating that he has made more than 70 trips to [place], he is willing to get a referral to see our senior director of [employer] here, his troponins were 48, 74 and 83 however he did not express any chest pain, his symptoms improved by the time I saw him on [facility], he was given diuretics for diastolic CHF exacerbation, patient is stating that he would like to discuss his echo report with his senior director of [employer],, I have convinced him to get outpatient stress test at least get a referral to see a senior director of [employer] in case he needs any intervention in the future. Patient takes Lasix 20 mg which I will increase to 40 mg at the time of discharge along potassium supplementation, he was taking it on Monday schedule. Of asked him to take it on daily basis for at least 2 weeks Patient is being discharged with stable hemodynamics, EKG showing paced rhythm, as well as patient is able to recall he is stating that his EF is likely around 40%, Physical Exam Narrative: Pleasant cooperative Recent surgery Euvolemic Nonfocal neuroexam Currently on room air Discharge Data Studies Completed and Pending Completed Studies During Hospitalization Category Date Time Status XR chest 1V portable [id number] Stat Exams 03/22/24 09:24 Completed CV. echo complete* [id number] Routine Ultrasound 03/22/24 13:15 Completed Pending at discharge Category Date Time Status Blood Culture Stat Lab 03/22/24 09:51 Results Radiology Impressions Chest X-Ray 03/22/24 09:24 IMPRESSION: Stable chest without acute abnormality. Laboratory Results WBC 6.27 10^3/uL (3.29-11.43) 03/22/24 09:51 RBC 4.52 10^6/uL (3.85-5.65) 03/22/24 09:51 Hgb 13.80 g/dL (11.27-16.99) 03/22/24 09:51 Hct 43.3 % (37-53) 03/22/24 09:51 MCV 95.8 fl (82-101) 03/22/24 09:51 MCH 30.5 pg (27-33) 03/22/24 09:51 MCHC 31.9 g/dL (30-55) 03/22/24 09:51 RDW 12.6 % (12.1-15.1) 03/22/24 09:51 Plt Count 95 10^3/cmm (157-399) L 03/22/24 09:51 MPV 9.2 fL (7.4-10.4) 03/22/24 09:51 Neut % (Auto) 87.8 % 03/22/24 09:51 Lymph % (Auto) 3.7 % 03/22/24 09:51 Rock % (Auto) 7.5 % 03/22/24 09:51 Eos % (Auto) 0.0 % 03/22/24 09:51 Baso % (Auto) 0.5 % 03/22/24 09:51 Neut # (Auto) 5.51 10^3/uL (1.8-7.7) 03/22/24 09:51 Lymph # (Auto) 0.2 10^3/uL (0.8-4.8) L 03/22/24 09:51 Rock # (Auto) 0.5 10^3/uL (0.2-0.9) 03/22/24 09:51 Eos # (Auto) 0.0 10^3/uL (0.0-0.8) 03/22/24 09:51 Baso # (Auto) 0.0 10^3/uL (0.0-0.1) 03/22/24 09:51 Nucleated RBC % (auto) 0 % 03/22/24 09:51 Nucleated RBCs # 0.0 /100WBC 03/22/24 09:51 Sodium 135 mmol/L (136-145) L 03/23/24 05:22 Potassium 4.5 mmol/L (3.5-5.1) 03/23/24 05:22 Chloride 100 mmol/L (98-107) 03/23/24 05:22 Carbon Dioxide 28 mmol/L (22-29) 03/23/24 05:22 Anion Gap 11.5 (5-19) 03/23/24 05:22 BUN 19 mg/dL (8-23) 03/23/24 05:22 Creatinine 1.5 mg/dL (0.7-1.2) H 03/23/24 05:22 GFR Calculation Not Reportable 03/23/24 05:22 Glucose 99 mg/dL (65-115) 03/23/24 05:22 Calculated Osmolality 282 mOsm/kg (285-295) L 03/23/24 05:22 Lactic Acid 1.1 mmol/L (0.5-2.2) 03/22/24 10:35 Calcium 8.7 mg/dL (8.5-10.5) 03/23/24 05:22 Magnesium 1.7 mg/dL (1.7-2.3) 03/23/24 05:22 Total Bilirubin 0.2 mg/dL (0.15-1.2) 03/22/24 09:57 AST 26 U/L (0-40) 03/22/24 09:57 ALT 21 U/L (0-41) 03/22/24 09:57 Alkaline Phosphatase 86 U/L (40-130) 03/22/24 09:57 Troponin T Baseline 48 ng/L (0-15) H 03/22/24 09:51 Troponin T 120 Minute 74.78 ng/L (0-15) H 03/22/24 11:54 Delta Troponin T 26.78 ABS# (0-10) H* 03/22/24 11:54 Troponin T Hi Sens 6Hr 83.79 ng/L (0-15) H 03/22/24 15:53 Troponin T Hi Sens 6Hr Delta 35.79 ng/L (0-12) H* 03/22/24 15:53 NT-Pro-B Natriuret Pep 2439 pg/mL (0-450) H 03/22/24 09:57 Total Protein 6.5 g/dL (6.6-8.7) L 03/22/24 09:57 Albumin 3.8 g/dL (3.5-5.2) 03/22/24 09:57 Globulin 2.7 g/dL (1.3-4.6) 03/22/24 09:57 Vitals Last Vital Signs Temp 97.8 F 03/23/24 07:46 Pulse 79 03/23/24 08:34 Resp 16 03/23/24 08:34 BP 139/72 03/23/24 07:46 Pulse Ox 95 03/23/24 08:34 O2 Del Method Room Air 03/23/24 08:34 Discharge Plan Discharge Patient Disposition: Home Condition: Stable Prescriptions: Continued isosorbide mononitrate 30 mg tablet extended release 24 hr 30 mg PO DAILY aspirin [Adult Aspirin Regimen] 81 mg tablet,delayed release (DR/EC) 81 mg PO DAILY multivitamin Tablet 1 tab PO DAILY cholecalciferol (vitamin D3) 25 mcg (1,000 unit) capsule 25 mcg PO DAILY clopidogrel [Plavix] 75 mg tablet 75 mg PO DAILY spironolactone 25 mg tablet 25 mg PO DAILY Qty: 30 9RF carvedilol 25 mg tablet 25 mg PO BID Qty: 180 3RF Rx Instructions: must administer with a meal/food tramadol 50 mg tablet 50 mg PO BID PRN (Reason: pain) Qty: 30 0RF montelukast [Singulair] 10 mg tablet 10 mg PO DAILY Qty: 30 6RF zolpidem [Ambien] 5 mg tablet 5 mg PO .QHS PRN (Reason: Insomnia) rosuvastatin 10 mg Tablet 10 mg PO QPM ranolazine 500 mg Tablet Extended Release 12 Hr 500 mg PO BID Wixela Inhub 250-50 mcg/dose blister with device 1 inh inhalation Q12H PRN (Reason: Shortness Of Breath) furosemide 20 mg tablet See Rx Instructions PO DAILY Qty: 30 0RF Rx Instructions: Take one tablet by mouth on Mon, Mon and Monday. Discharge Orders: Discharge Order (Routine); Ordered 03/23/24 Ordered By: Patricia Kenny Other Ambulatory Orders: NM curtis perf SPECT r/s* [id number] (Routine) Timeframe: 3 Days Facility: [facility] - Location: Radiology Ordered By: Patricia Kenny Referrals: Malick Rodriguez MD [Physician] - 2 weeks Franklin Salinas MD [Primary Care Provider] - Discharge Diet: Cardiac Patient Instructions: Opioid Safety Activity Restrictions/Additional Instructions: For next 3 to 4 days you can take Lasix 20 mg on daily basis then you can switch to your regular routine of Monday I am giving you referral to see a senior director of [employer] Dr. Rodriguez There is also referral given to get a stress test done next week it is a chemical test you do not have to do brisk walk on a treadmill Discharge Attestations Time Spent in Discharge Care*: greater than 30 min Quality Metrics Clinical Quality Measures [ No reported AMI, CVA or VTE this stay] Coding Level of Care Code Acute Code for Chg Fwd Diagnoses Exertional dyspnea R06.09 CHF exacerbation I50.9
[2024-03-23 11:31] VITALS: BP 113/60; PULSE 57; RESP 18; TEMP 36.9; O2SAT 95
--- NOTE | 2024-03-23 11:50 | PC.NURSE ---
Patient is requesting a copy of his Echo. Per Dr. Kenny's verbal order patient's Echocardigram was printed off and sent with the patient.
== END 2024-03-23 13:13 | disposition home or self-care (01) ==
LOC: ER 13:54 → MEDSURG 14:37
PROVIDERS: Admitting Provider Internal Medicine; Emergency Provider Emergency Medicine; PCP Family Medicine; Visit Provider Internal Medicine
DX: R06.09 Other forms of dyspnea (principal); I50.9 Heart failure, unspecified; I25.10 Atherosclerotic heart disease of native coronary artery without angina pectoris; Z95.5 Presence of coronary angioplasty implant and graft; Z95.1 Presence of aortocoronary bypass graft; Z79.82 Long term (current) use of aspirin; Z82.49 Family history of ischemic heart disease and other diseases of the circulatory system; Z95.0 Presence of cardiac pacemaker; Z87.891 Personal history of nicotine dependence; N18.9 Chronic kidney disease, unspecified; E87.5 Hyperkalemia
CPT/HCPCS: 36415; 71045; 80048; 80053; 83605; 83735; 83880; 84484; 85025; 87040; 93005; 93306; 96372; 96374; 99285; G0378; J1650; J1940; J7040

== ENCOUNTER → 2024-04-18 09:38 | Outpatient (BNVA) | payer MEDICARE, OTHER, SELFPAY | PROVIDERS: PCP Family Medicine; Visit Provider Family Medicine | DX: M54.2 Cervicalgia (principal); J44.9 Chronic obstructive pulmonary disease, unspecified | CPT/HCPCS: 80048 ==

== ENCOUNTER → 2024-05-01 08:54 | Outpatient (BNVA) | payer MEDICARE, OTHER, SELFPAY | PROVIDERS: PCP Family Medicine; Visit Provider Family Medicine | DX: E87.5 Hyperkalemia (principal); I50.9 Heart failure, unspecified; M54.2 Cervicalgia | CPT/HCPCS: 80048 ==

== ENCOUNTER → 2024-05-21 08:17 | Outpatient (BNVA) | payer MEDICARE, OTHER, SELFPAY | PROVIDERS: PCP Family Medicine; Visit Provider Family Medicine | DX: N18.9 Chronic kidney disease, unspecified (principal) | CPT/HCPCS: 80053; 85025 ==

== ENCOUNTER → 2024-07-02 09:16 | Outpatient (BNVA) | payer MEDICARE, OTHER, SELFPAY | PROVIDERS: PCP Family Medicine; Visit Provider Family Medicine | DX: I50.9 Heart failure, unspecified (principal) | CPT/HCPCS: 80048 ==

== ENCOUNTER → 2024-09-02 09:23 | Outpatient (BNVA) | payer MEDICARE, OTHER, SELFPAY | PROVIDERS: PCP Family Medicine; Visit Provider Family Medicine | DX: I50.9 Heart failure, unspecified (principal); J44.9 Chronic obstructive pulmonary disease, unspecified | CPT/HCPCS: 80048 ==

== ENCOUNTER → 2024-10-29 10:05 | Outpatient (BNVA) | payer MEDICARE, OTHER, SELFPAY | PROVIDERS: PCP Family Medicine; Visit Provider Family Medicine | DX: I50.9 Heart failure, unspecified (principal) | CPT/HCPCS: 80048 ==

== ENCOUNTER → 2024-11-13 10:15 | Outpatient (BNVA) | payer MEDICARE, OTHER, SELFPAY | PROVIDERS: PCP Family Medicine; Visit Provider Family Medicine | DX: I50.9 Heart failure, unspecified (principal) | CPT/HCPCS: 80048 ==

== ENCOUNTER → 2025-01-06 09:21 | Outpatient (BNVA) | payer MEDICARE, OTHER, SELFPAY | PROVIDERS: PCP Family Medicine; Visit Provider Family Medicine | DX: I50.22 Chronic systolic (congestive) heart failure (principal) | CPT/HCPCS: 80048 ==

== ENCOUNTER → 2025-02-03 08:31 | Outpatient (BNVA) | payer MEDICARE, OTHER, SELFPAY | PROVIDERS: PCP Family Medicine; Visit Provider Family Medicine | DX: I50.9 Heart failure, unspecified (principal) | CPT/HCPCS: 80048 ==

== ENCOUNTER → 2025-03-17 09:02 | Outpatient (BNVA) | payer MEDICARE, OTHER, SELFPAY | PROVIDERS: PCP Family Medicine; Visit Provider Family Medicine | DX: I50.9 Heart failure, unspecified (principal) | CPT/HCPCS: 80048 ==

== ENCOUNTER 2025-04-21 16:10 | Outpatient (CLI) | payer OTHER, SELFPAY ==
--- NOTE | 2025-04-21 16:17 | USR_ITS ---
PROCEDURE INFORMATION: Exam: US Duplex Bilateral Lower Extremity Arteries Exam date and time: 04/21/2025 4:26 PM Age: 85 years old Clinical indication: Condition or disease; Peripheral vascular disease; Additional info: Claudication TECHNIQUE: Imaging protocol: Real-time ultrasound scan of the arteries of the bilateral lower extremities with 2-D crooks scale, color Doppler flow and spectral waveform analysis. Images documented and saved. COMPARISON: US renal BI* [id number] 09/13/2023 9:29 AM FINDINGS: Right ankle-brachial index is 0.97. Right common femoral artery: No occlusion or significant stenosis. Normal waveform. Right superficial femoral artery: No occlusion or significant stenosis. Normal waveform. Right popliteal artery: No occlusion or significant stenosis. Normal waveform. Right calf/foot arteries: No occlusion or significant stenosis in the visualized arteries. Normal waveforms. Dorsalis pedis artery is patent. Left ankle-brachial index is 1.12. Left common femoral artery: No occlusion or significant stenosis. Normal waveform. Left superficial femoral artery: No occlusion or significant stenosis. Normal waveform. Left popliteal artery: No occlusion or significant stenosis. Normal waveform. Left calf/foot arteries: No occlusion or significant stenosis in the visualized arteries. Normal waveforms. Dorsalis pedis artery is patent. US/[place] [id number] IMPRESSION: No stenosis or occlusion. Normal ankle brachial indices.
== END 2025-04-21 16:11 | disposition home or self-care (01) ==
LOC: RAD 16:12
PROVIDERS: PCP Family Medicine; Visit Provider Family Medicine
DX: I73.9 Peripheral vascular disease, unspecified (principal)
CPT/HCPCS: 93925

== ENCOUNTER → 2025-06-24 09:14 | Outpatient (BNVA) | payer OTHER, SELFPAY | PROVIDERS: PCP Family Medicine; Visit Provider Family Medicine | DX: I50.9 Heart failure, unspecified (principal) | CPT/HCPCS: 80048 ==

== ENCOUNTER 2025-07-29 09:47 | Outpatient (CLI) | payer MEDICARE, OTHER, SELFPAY ==
--- NOTE | 2025-07-29 10:00 | US_ITS ---
WS: [id number] ULTRASOUND RENAL TECHNIQUE: Ultrasound examination of both kidneys. CLINICAL INFORMATION: Elevated creatinine COMPARISON: Ultrasound 09/13/[address] FINDINGS: RIGHT: RIGHT mid simple renal cyst measuring 4.6 x 5.7 x 4.1 cm. Smaller satellite cyst measuring 1.7 x 1.6 cm Moderate RIGHT pelvocaliectasis similar to the prior studies Echogenicity: Normal. Cortical thickness: 1.1 cm; Normal. Perinephric fluid: None. Right kidney measures: 9.8 cm x 4.4 cm x 4.4 cm. LEFT: Lobulated simple LEFT mid renal cyst measuring 4.6 x 3.6 x 3.9 cm Left kidney is normal in size and appearance. Echogenicity: Normal. Cortical thickness: 1.3 cm; Normal. Hydronephrosis: None. Perinephric fluid: None. Left kidney measures: 10.4 cm x 3.8 cm x 5.0 cm. Normal visualized aorta. Prostate measures 2.9 x 2.5 x 3.9 cm Prevoid bladder volume 74 cc post void 12 cc US/US renal BI w/PV bladder [id number] IMPRESSION: 1. Prevoid bladder volume 74 cc 2. post void 12 cc 3. Diffuse bladder wall thickening can be seen with chronic cystitis or bladde r outlet obstruction. Mild prostate enlargement. Recommend correlation PSA. 4. Bilateral simple renal cysts largest on the RIGHT described above. 5. Moderate RIGHT renal pelvocaliectasis similar to the prior studies. This ca n be further evaluated with CT if indicated. 6. No hydronephrosis in the LEFT kidney 7. Bilateral ureteral jets visualized
== END 2025-07-29 09:48 | disposition home or self-care (01) ==
LOC: RAD 09:48
PROVIDERS: PCP Family Medicine; Visit Provider Family Medicine
DX: N18.9 Chronic kidney disease, unspecified (principal); R39.14 Feeling of incomplete bladder emptying; N39.43 Post-void dribbling; N32.89 Other specified disorders of bladder; N28.1 Cyst of kidney, acquired; R93.41 Abnormal radiologic findings on diagnostic imaging of renal pelvis, ureter, or bladder; N13.39 Other hydronephrosis; Z96.0 Presence of urogenital implants; R93.421 Abnormal radiologic findings on diagnostic imaging of right kidney
CPT/HCPCS: 76770; 76857

== ENCOUNTER → 2025-09-02 09:36 | Outpatient (BNVA) | payer MEDICARE, OTHER, SELFPAY | PROVIDERS: PCP Family Medicine; Visit Provider Family Medicine | DX: E55.9 Vitamin D deficiency, unspecified (principal); N18.9 Chronic kidney disease, unspecified; I50.9 Heart failure, unspecified; I13.0 Hypertensive heart and chronic kidney disease with heart failure and stage 1 through stage 4 chronic kidney disease, or unspecified chronic kidney disease; R53.81 Other malaise; R53.83 Other fatigue | CPT/HCPCS: 80048; 80069; 82043; 82306; 82310; 83970; 85025 ==

== ENCOUNTER → 2025-09-08 10:05 | Outpatient (BNVA) | payer MEDICARE, OTHER, SELFPAY | PROVIDERS: PCP Family Medicine; Visit Provider Family Medicine | DX: N18.9 Chronic kidney disease, unspecified (principal) | CPT/HCPCS: 85025 ==